=== PATIENT | female | born 1965 | race Caucasian/White ===

== ENCOUNTER → 2024-01-15 08:21 | Outpatient (REF) | payer OTHER, SELFPAY | LOC: HWRAD 08:21 | PROVIDERS: ATTENDING PHYSICIAN Surgery; FAMILY PHYSICIAN Family Medicine | DX: N20.0 Calculus of kidney (principal) | CPT/HCPCS: 76775 ==

== ENCOUNTER → 2024-09-16 17:52 | Outpatient (REF) | payer OTHER, SELFPAY | LOC: WDC 17:52 | PROVIDERS: ATTENDING PHYSICIAN Obstetrics & Gynecology; FAMILY PHYSICIAN Family Medicine | DX: Z12.31 Encounter for screening mammogram for malignant neoplasm of breast (principal) | CPT/HCPCS: 77063; 77067 ==

== ENCOUNTER → 2024-10-10 08:51 | Outpatient (REF) | payer OTHER, SELFPAY | LOC: WDC 08:51 | PROVIDERS: ATTENDING PHYSICIAN Obstetrics & Gynecology; FAMILY PHYSICIAN Family Medicine | DX: R92.2 Inconclusive mammogram (principal); R92.333 Mammographic heterogeneous density, bilateral breasts | CPT/HCPCS: 76641 ==

== ENCOUNTER → 2024-11-14 09:55 | Outpatient (REF) | payer OTHER, SELFPAY | LOC: DHSLP 09:55 | PROVIDERS: ATTENDING PHYSICIAN Internal Medicine Critical Care Medicine; FAMILY PHYSICIAN Family Medicine | DX: G47.33 Obstructive sleep apnea (adult) (pediatric) (principal) | CPT/HCPCS: 95811 ==

== ENCOUNTER → 2024-12-16 14:48 | Outpatient (REF) | payer OTHER, SELFPAY | LOC: HWRAD 14:48 | PROVIDERS: ATTENDING PHYSICIAN Surgery; FAMILY PHYSICIAN Family Medicine | DX: N20.0 Calculus of kidney (principal) | CPT/HCPCS: 76775 ==

== ENCOUNTER → 2025-01-11 10:55 | Outpatient (REF) | payer OTHER, SELFPAY | LOC: RAD 10:55 | PROVIDERS: ATTENDING PHYSICIAN Surgery; FAMILY PHYSICIAN Family Medicine | DX: N20.0 Calculus of kidney (principal) | CPT/HCPCS: 74176 ==

== ENCOUNTER 2025-02-27 20:16 | Emergency (ER) | payer OTHER, SELFPAY ==
[2025-02-27 20:17] VITALS: BP 167/98
--- NOTE | 2025-02-27 20:39 | ED.SKININJ ---
HPI-Injury
General
Chief Complaint: Bite
Source: patient
Exam Limitations: none
Time Seen by Provider: 02/27/25 20:27
History of Present Illness-Injury
Initial Injury comments:
60yoF with a history of hypertension and hyperlipidemia presenting for evaluation after a dog bite. Patient was walking her dog when a stray dog came up and bit her in her left leg through her pants. Prior to this, there was a man driving around
in a car looking for his lost dog. The dog did have a collar which patient was able to obtain with contact information for the electrical design engineer. The collar also indicated that the rabies vaccinations were up to date. Police were called to the scene and I
was able to speak with the customs officer over the phone and they confirmed that the dog received the rabies vaccine in May 2024. Tdap also up to date.
Phy Exam
General Physical Exam
General Presentation: well appearing and no apparent distress
General age: appears stated age
General Skin: warm and dry
General Habitus: normal
General Mental: alert
ENT Exam
ENT Exam: normocephalic
Neurological Exam
Neurological Exam: alert
[place] Coma Scale
Eye Opening: Spontaneous
Verbal Response: Oriented
Motor Response: Obeys Commands
GCS Total Score: 15
Skin Exam
Skin Exam: warm/dry and other (Minor bite wounds noted to L anterior knee. No areas that are gaping, actively bleeding, or require suture repair. )
Course
Orders/Labs/Results
Orders:
Orders
02/27/25 20:39
Amoxicillin 875 mg/Clav 125 mg [Augmentin 875 mg/125 mg] 1 tablet PO NOW STA
02/27/25 20:51
Amoxicillin 875 mg/Clav 125 mg [Augmentin 875 mg/125 mg] 1 tablet PO NOW STA
Ondansetron Orally Disint [Zofran Odt (Orally Disintegrating)] 4 mg PO NOW STA
Vital Signs
Initial and Last Documented VS:
Initial Vital Signs
Temp Pulse Resp BP Pulse Ox
98.0 F 86 16 167/98 99
02/27/25 20:17 02/27/25 20:17 02/27/25 20:17 02/27/25 20:17 02/27/25 20:17
Last Documented Vital Signs
Temp Pulse Resp BP Pulse Ox
98.0 F 86 16 168/93 99
02/27/25 20:17 02/27/25 20:17 02/27/25 20:17 02/27/25 21:57 02/27/25 20:17
MDM/Problems Addressed
Differential Diagnosis Includes:
60yoF here after being bitten by a stray dog in her L leg this evening. Police are involved and have contacted the electrical design engineer and obtained proof of rabies vaccination status. Tdap UTD. There are minor bite wounds noted to L anterior knee. No areas that
require suture repair. She was started on a course of Augmentin. Animal bite formed completed and faxed by registration. Advised return to the ED with any signs of infection.
*Critical Care Note
Total Time (30-74mins, 75-104mins- exclusive of procedures): Not Applicable
ED Attending Note
-
Portions of this chart may have been created with voice recognition software.� Occasional wrong word or��sound alike� substitutions may have occurred due to the inherent limitations of voice recognition software.
Discharge Plan
Departure
Patient Disposition: Home (Routine Discharge)
Date of Disposition: 02/27/25
Time of Disposition: 20:41
Patient with high blood pressure during this ER visit?: Yes
Discharge Problem:
Dog bite of left lower leg
Instructions: Animal Bites (DC)
Prescriptions:
New
amoxicillin-pot clavulanate 875-125 mg tablet
1 tab PO BID Qty: 13 0RF
Referrals:
Jose Alberto Sharma DO [Primary Care Provider] -
Activity Restrictions/Additional Instructions:
Take antibiotics as prescribed.
Please follow-up with your family doctor. Return to the ER with any signs of infection.
Interventions
Interventions:
*Risk Screen - Suicide Last Done: 02/27/25 20:49
*General Assessment Last Done: 02/27/25 20:49
*Neglect/Abuse Screening Last Done: 02/27/25 20:49
*Nursing Disposition Last Done: 02/27/25 21:58
ED-Skin Assessment Last Done: 02/27/25 20:48
Discharge Date and Time
Discharge Date/Time: 02/27/25 21:58
Print Language: ANDORRAN
[2025-02-27] MEDS: AUGMENTIN 875 MG/125 MG 1 TABLET PO ×2 (20:46→21:11)
[2025-02-27] MEDS: ZOFRAN ODT (ORALLY DISINTEGRATING) 4 MG PO (21:11)
[2025-02-27 21:57] VITALS: BP 168/93
== END 2025-02-27 21:58 | disposition home or self-care (01) ==
LOC: EMR 20:16
PROVIDERS: EMERGENCY PHYSICIAN Emergency Medicine; PRIMARYCARE PHYSICIAN Family Medicine
DX: S81.852A Open bite, left lower leg, initial encounter (principal); W54.0XXA Bitten by dog, initial encounter; I10 Essential (primary) hypertension; E78.5 Hyperlipidemia, unspecified
CPT/HCPCS: 99283